=== PATIENT | male | born 1980 | race Caucasian/White ===

== ENCOUNTER 2019-04-09 19:09 | Emergency (ER) | payer MEDICAID, OTHER, SELFPAY ==
[~2019-04-09] VITALS: Ht 182.9 cm; Wt 90.5 kg
[2019-04-09 19:11] VITALS: BP 126/78
--- NOTE | 2019-04-09 19:50 | NUR ---
PT MOVED TO ROOM
[2019-04-09] MEDS ORDERED: LIDOCAINE 1%, 10ML INFIL ONE (20:00)
--- NOTE | 2019-04-09 20:04 | NUR ---
Pt ambulatory to room. Pt reports swelling and pain to right small toe started around a month ago. Pt also has redness bump/lesion-like wounds to right upper thigh and right advent. Pt denies known fevers/vomiting. Pt reports meth use 3 days ago and everyday THC use. Pt in gown, call light within reach.
[2019-04-09] MEDS ORDERED: LIDOCAINE-MPF 1%, 5ML ONE (20:22)
[2019-04-09] MEDS ORDERED: IBUPROFEN 600 MG TABLET ONE (21:10)
--- NOTE | 2019-04-09 21:14 | NUR ---
Pt sleeping on gurney when RN entered room. Pt medicated per MAR.
--- NOTE | 2019-04-09 21:23 | NUR ---
Pt dc'd to self care. Pt educated on OTC medications, wound care, and smoking and drug use. Pt VU. Pt handed prescriptions at time of d/c. Pt ambulated out of ER.
[2019-04-09] MEDS ORDERED: IBUPROFEN 600 MG TABLET PO ONE (22:00)
== END 2019-04-09 21:37 | disposition home or self-care (01) ==
LOC: ED 21:31
DX: L03.211 Cellulitis of face (principal); L03.115 Cellulitis of right lower limb; L03.031 Cellulitis of right toe
CPT/HCPCS: 10060; 73630; 99283; J3490